=== PATIENT | male | born 1950 | race African-American/Black ===

== ENCOUNTER 2020-11-21 14:08 | Outpatient (REF) | payer MEDICARE, SELFPAY | END 2020-11-21 14:09 | disposition home or self-care (01) | LOC: HO.LNP 14:08 | PROVIDERS: Visit Provider Hospitalist | DX: Z20.822 Contact with and (suspected) exposure to COVID-19 (principal); B34.9 Viral infection, unspecified | CPT/HCPCS: U0003; U0005 ==

== ENCOUNTER 2024-03-30 12:29 | Inpatient (IN) | payer OTHER, SELFPAY ==
[2024-03-30] VITALS (7 sets, daily range): BP systolic 112–150; BP diastolic 66–81; PULSE 68–83; RESP 16–20; TEMP 36.1–36.7; O2SAT 94–98; BMI 23.3
--- NOTE | ~2024-03-30 | CT_ITS ---
EXAMINATION: CT HEAD WITHOUT CONTRAST CLINICAL INFORMATION: Dizziness after falling COMPARISON: None available. TECHNIQUE: Contiguous axial imaging was performed from the skull base to vertex without intravenous administration of contrast. This CT examination was performed using dose optimization techniques as appropriate, variously including the following: *Automated exposure control *Adjustment of mA and/or kV according to patient size (this includes techniques or standardized protocols for targeted exams where dose is matched to indication/reason for exam; i.e. extremities or head) *Use of iterative reconstruction technique DLP: 816 mGy-cm FINDINGS: There is moderate deep white matter gliosis and prominence to the sulci and ventricles but no intra or extra-axial fluid collection or hemorrhage, mass, or mass effect. Calvarium intact. There is minor mucoperiosteal thickening in the right maxillary sinus. CT/CT head/brain wo IV con IMPRESSION: No acute intracranial pathology. Electronically signed by: Rachid Wild MD 03/30/2024 02:18 PM EDT
--- NOTE | ~2024-03-30 | CT_ITS ---
EXAMINATION: CT ABDOMEN AND PELVIS WITH CONTRAST CLINICAL INFORMATION: Diffuse abdominal pain COMPARISON: 01/13/2019 TECHNIQUE: Multidetector volumetric images were obtained from the superior aspect of the liver through the pubic symphysis following administration 85 mL of Omnipaque 350 intravenous contrast. Sagittal and coronal reformatted images were obtained on the technologist's workstation. Oral contrast: No This CT examination was performed using dose optimization techniques as appropriate, variously including the following: *Automated exposure control *Adjustment of mA and/or kV according to patient size (this includes techniques or standardized protocols for targeted exams where dose is matched to indication/reason for exam; i.e. extremities or head) *Use of iterative reconstruction technique DLP: 557 mGy-cm FINDINGS: LUNG BASES: Coronary artery calcifications are partially visualized. ABDOMINAL AND PELVIC WALL: Unremarkable. LIVER AND BILIARY TREE: Unremarkable. GALLBLADDER: Cholelithiasis, no CT findings of acute cholecystitis. PANCREAS: Unremarkable. SPLEEN: Unremarkable. ADRENAL GLANDS: Unremarkable. KIDNEYS AND URETERS: Unremarkable. GASTROINTESTINAL TRACT: Colonic diverticulosis, no findings of diverticulitis. Appendix is within normal limits. VASCULAR: Aortic atherosclerotic calcifications, no aneurysmal dilation. LYMPH NODES/PERITONEUM: No lymphadenopathy. FREE FLUID: None. BLADDER: Unremarkable. PELVIC VISCERA: Unremarkable. OSSEOUS STRUCTURES: Degenerative changes of the thoracolumbar spine. CT/CT abdomen pelvis w IV con IMPRESSION: * No acute intra-abdominal abnormality. * Cholelithiasis, no CT findings of acute cholecystitis. Electronically signed by: Jo Holly MD 03/30/2024 06:39 PM EDT
--- NOTE | 2024-03-30 12:33 | ECG_ITS ---
Test Reason : dizziness, fall Blood Pressure : / mmHG Vent. Rate : 081 BPM Atrial Rate : 081 BPM P-R Int : 138 ms QRS Dur : 098 ms QT Int : 410 ms P-R-T Axes : 064 -35 021 degrees QTc Int : 476 ms Normal sinus rhythm Left axis deviation Nonspecific T wave abnormality Prolonged QT Abnormal ECG No previous ECGs available Referred By: Shi Bates Electronically Signed By:SHERON FLOYD
--- NOTE | 2024-03-30 12:34 | ED.GENADULT ---
HPI - General Adult General Chief complaint: Weakness Stated complaint: Dehydration Time Seen by Provider: 03/30/24 13:47 Source: patient Mode of arrival: ambulatory Limitations: no limitations History of Present Illness ED Provider: Dr. Landy Chaudhry HPI narrative: Patient comes to the emergency room complaining of nausea, vomiting, diarrhea, generalized malaise and weakness. Patient states that about 5 days ago, he ate fried rice with pork and then ate again the next day he read he did the food and ate some more. Patient states that since then, he has been having diffuse abdominal cramping, nausea vomiting diarrhea. Patient states that today he feels weak. Patient states that today when he was walking to emergency room, his legs suddenly gave out. Patient states that he did not hit his head or lost consciousness. Patient states it was just weakness. Related Data Home Medications ?Medication ?Instructions ?Recorded ?Confirmed amlodipine 10 mg tablet 10 mg PO DAILY 11/21/20 03/30/24 clobetasol 0.05 % topical cream 1 appl topical BID PRN Dry Patchy 11/21/20 03/30/24 Skin gabapentin 800 mg tablet 800 mg PO DAILY 11/21/20 03/30/24 lisinopril 40 mg tablet 40 mg PO DAILY 11/21/20 03/30/24 metformin 500 mg tablet 500 mg PO BID 11/21/20 03/30/24 metoprolol tartrate 100 mg tablet 100 mg PO BID 11/21/20 03/30/24 gabapentin 800 mg tablet 800 mg PO DAILY@1200 03/30/24 03/30/24 spironolactone 25 mg tablet 25 mg PO DAILY 03/30/24 03/30/24 Allergies Allergy/AdvReac Type Severity Reaction Status Date / Time No Known Allergies Allergy Verified 03/30/24 12:38 [No Known Allergies*] Review of Systems Review of Systems: Constitutional : No Weight loss, No Fever, No Chills, No Night Sweats, complaining of fatigue, generalized malaise ENT/Mouth : No Hearing loss, No Ear Pain, No Nasal Congestion, No Sinus Pain, No Hoarseness, No sore throat, No Rhinorrhea, No Swallowing Difficulty Eyes: No Eye Pain, No Swelling, No Redness, No Foreign Body, No Discharge, No Vision Changes Cardiovascular : No Chest Pain, No SOB, No Dyspnea on Exertion, No Orthopnea, No Edema, No Palpitations Respiratory : No Cough, No Sputum, No Wheezing, No Smoke Exposure, No Dyspnea Gastrointestinal : Complaining of nausea, vomiting, diarrhea, diffuse abdominal cramping Genitourinary : no irregular bleeding, No Dysuria, No Urinary Frequency, No Hematuria, No Urinary Incontinence, No Urgency, No Flank Pain, No Urinary Flow Changes, No Hesitancy Musculoskeletal : No joint pain, No Myalgias, No Joint Swelling Skin : No Skin Lesions, No rash Neuro : No Weakness, No Numbness, No Paresthesias, No Loss of Consciousness, No Dizziness, No Headache Psych : No Anxiety/Panic, No Depression, No SI/HI/AH/VH, No Social Issues, Heme/Lymph: No Bruising, No Bleeding,No Lymphadenopathy Endocrine : No Polyuria, No Polydipsia, No Temperature Intolerance [facility] Social History Social History Advance Directives: Yes Advance Directives Information Provided: Yes Advance Directives on File: No Do you have a plan to hurt others: No Plan Physical Exam ED Vital Signs: Vital Signs - 24 hr 03/30/24 12:36 03/30/24 14:28 03/30/24 14:29 Temperature 96.9 F Pulse Rate 78 79 68 Respiratory Rate 18 Blood Pressure 112/67 121/71 122/66 Pulse Oximetry 95 Oxygen Delivery Method Room Air 03/30/24 14:29 03/30/24 16:29 03/30/24 18:14 Temperature 98.0 F 97.8 F Pulse Rate 78 78 80 Respiratory Rate 16 20 Blood Pressure 139/81 118/79 150/78 H Pulse Oximetry 98 94 Oxygen Delivery Method Room Air Room Air 03/30/24 20:49 Temperature 97.7 F Pulse Rate 74 Respiratory Rate 17 Blood Pressure 139/72 Pulse Oximetry 94 Oxygen Delivery Method Room Air BMI result Body Mass Index 23.3 Const Other: Appearance: Alert. Oriented X3. No acute distress. Seems weak Eyes: Pupils equal, round and reactive to light. ENT: Pharynx normal. Neck: Normal inspection. Neck supple. No lymph nodes noted. No crepitus CVS: Normal heart rate and rhythm. Pulses normal. Normal S1 and S2 Respiratory: No respiratory distress. Breath sounds normal. No Wheezing. No rales Abdomen: Soft , diffuse discomfort to palpation in all quadrants No rigidity. No distention. Skin: Skin warm and dry. Normal skin color. Normal skin turgor. Extremities: No lower extremity edema. No Lacerations. No Rash Neuro: Oriented X 3. No motor deficit. No sensory deficit. Moving all extremities. No slurred speech. CN 2 through 12 grossly intact Psych: calm, cooperative, normal affect Course Course Course Narrative: This is an RME done by JOCELYN Bates: Additional HPI, ROS, PE not included below will be deferred to primary provider. 73 year old male presenting with concerns of dizziness, weakness, and dehydration since last with a/c fever, chills, n/v, and abdominal pain. He also stated he had food poisoning last day from chicken fried rice. Pt also fell on his way into the ED, landing onto his back, unknown if headstrike, did not experience LOC. Plan - labs, urine, imaging Appearance: Alert.? Oriented X3.? No acute cardiopulmonary distress.? Head: Normocephalic, atraumatic, no step-offs or deformities Neck: Normal inspection.? Neck supple.? CVS: Pulses normal.? Respiratory: No respiratory distress.? Abdomen: Soft and nontender.? Skin: ? Normal skin color. Extremities: 5/5 strength to bilateral upper and lower extremities Neuro: Oriented X 3.? No motor deficit.? No sensory deficit. Medications Administered Discontinued Medications Generic Name Dose Route Start Last Admin Trade Name Freq PRN Reason Stop Dose Admin Sodium Chloride 1,000 mls @ 999 mls/hr 03/30/24 14:01 03/30/24 16:21 Ns IVCONT 03/30/24 15:01 Infused .Q1H1M ONE Infusion Sodium Chloride 1,000 mls @ 999 mls/hr 03/30/24 19:07 03/30/24 20:52 Ns IVCONT 03/30/24 20:07 Infused .Q1H1M ONE Infusion Iohexol 85 ml 03/30/24 16:11 03/30/24 16:12 Iohexol 350 Mg/Ml 75 Ml Infus..Btl IV 03/30/24 16:12 85 ml ONCE ONE Administration Loperamide HCl 4 mg 03/30/24 14:01 03/30/24 14:14 Loperamide Hcl 2 Mg Capsule PO 03/30/24 14:02 Not Given ONCE ONE Ondansetron HCl 4 mg 03/30/24 14:01 03/30/24 14:14 Ondansetron Hcl 4 Mg/2 Ml Vial IVPUSH 03/30/24 14:02 Not Given ONCE ONE Medical Decision Making Medical Decision Making [facility] Narrative: -my interpretation of head CT: No intracranial bleed. My interpretation of CT scan of the abdomen and pelvis, no obvious abnormality -my interpretation of labs: Hematology normal white blood cell count. Bandemia of 15%, chemistry does not show a significant acute electrolyte imbalance. -patient is able to tolerate p.o.. However, when patient walks, he still feels weak -I discussed the patient with Dr. Almonte Differential Diagnosis Differential Diagnoses: The differential diagnosis associated with the presentation includes (Dehydration, gastritis, gastroenteritis, UTI, viral syndrome) Admission/Observation Consideration of admission/observation: Escalation of care including admission/observation considered (Patient is very weak, observation/admission considered) Consult Healthcare Provider Management of the patient was discussed with: Hospitalist Lab Data [facility] Lab Attestation statement: I reviewed the patient's lab results. 03/30/24 12:49 03/30/24 15:41 Labs: Lab Results 03/30/24 03/30/24 03/30/24 Range/Units 12:48 12:49 15:41 WBC 7.7 (4.8-10.8) X10*3/uL RBC 5.12 (4.60-5.80) X10*6/uL Hgb 16.4 (14.0-18.0) g/dl Hct 47.2 (42.0-52.0) % MCV 92.2 (80.0-98.0) fL MCH 32.0 (27.0-33.0) pg MCHC 34.7 (31.0-36.0) g/dl RDW 13.6 (11.0-16.0) % Plt Count 385 (160-400) X10*3/uL MPV 9.2 L (9.4-12.4) fL Immature Gran % (Auto) Cancelled Neut % (Auto) Cancelled Lymph % (Auto) Cancelled [place] % (Auto) Cancelled Eos % (Auto) Cancelled Baso % (Auto) Cancelled Lymph # (Auto) Cancelled [place] # (Auto) Cancelled Eos # (Auto) Cancelled Baso # (Auto) Cancelled Abs Immat Gran (auto) Cancelled Absolute Neuts (auto) Cancelled Absolute Nucleated RBC 0.000 (0.0-0.012) X10*3/uL Nucleated RBC % (auto) 0.0 (0.0-0.2) /100WBC Neutrophils % (Manual) 50 (45-73) % Band Neutrophils % 15 H (3-5) % Lymphocytes % (Manual) 15 L (20-40) % Atypical Lymphs % (Man) 3 (0-6) % Monocytes % (Manual) 16 H (2-11) % Eosinophils % (Manual) 1 (0-4) % Abs Neuts (Manual) 5.0 (2.0-8.3) X10*3/uL Lymphocytes # (Manual) 1.2 (1.2-4.9) X10*3/uL Atyp Lymphs # (Manual) 0.2 x10*3/uL Monocytes # (Manual) 1.2 (0.1-1.2) X10*3/uL Eosinophils # (Manual) 0.1 (0.0-0.4) X10*3/uL Dohle Bodies PRESENT Platelet Estimate NORMAL (NORMAL) Plt Morphology Comment NORMAL RBC Morphology NOTED Polychromasia 1+ (0-2) /OIF Macrocytosis 1+ (5-14) /OIF Ovalocytes 1+ (5-14) /OIF Acanthocytes (Spur) 2+ (3-5) /OIF Sodium 134 L 136 (135-145) mmol/L Potassium 5.1 4.5 (3.3-5.1) mmol/L Chloride 95 L 103 (96-108) mmol/L Carbon Dioxide 24 25 (22-29) mmol/L Anion Gap 20 13 (12-20) BUN 34 H 29 H (9-16) mg/dL Creatinine 1.17 0.92 (0.5-1.4) mg/dL Estim Creat Clear Calc 63.5 80.8 Estimated GFR > 60 > 60 Random Glucose 122 H 104 (60-115) mg/dL Calcium 9.3 7.3 L D (8.4-10.2) mg/dL Magnesium 2.4 (1.6-2.6) mg/dL Total Bilirubin 0.5 (0.0-1.0) mg/dL AST 45 H (5-37) U/L ALT 46 H (0-40) U/L Alkaline Phosphatase 54 (39-117) U/L Troponin I High Sens 63.5 H 56.0 H (<3.5-35.0) ng/L Total Protein 6.6 (6.5-8.0) g/dL Albumin 3.1 L (3.5-5.0) g/dL Urine Color Urine Appearance Urine pH (5.0-9.0) Ur Specific [place] (1.005-1.025) Urine Protein (Neg-Trace) mg/dL Urine Glucose (UA) (Negative) mg/dL Urine Ketones (Negative) mg/dL Urine Blood (Negative) Urine Nitrite (Negative) Ur Leukocyte Esterase (Negative) Urine RBC (0-2) /HPF Urine WBC (0-5) /HPF Ur Squamous Epith Cells (0-2) /HPF Urine Bacteria (None Seen) Hyaline Casts (0-2) /LPF Influenza Type A (PCR) NEGATIVE (Negative) Influenza Type B (PCR) NEGATIVE (Negative) RSV RNA Qual (PCR) NEGATIVE (Negative) SARS-CoV-2 RNA (RT-PCR) NEGATIVE (Negative) 03/30/24 Range/Units 15:49 WBC (4.8-10.8) X10*3/uL RBC (4.60-5.80) X10*6/uL Hgb (14.0-18.0) g/dl Hct (42.0-52.0) % MCV (80.0-98.0) fL MCH (27.0-33.0) pg MCHC (31.0-36.0) g/dl RDW (11.0-16.0) % Plt Count (160-400) X10*3/uL MPV (9.4-12.4) fL Immature Gran % (Auto) Neut % (Auto) Lymph % (Auto) [place] % (Auto) Eos % (Auto) Baso % (Auto) Lymph # (Auto) [place] # (Auto) Eos # (Auto) Baso # (Auto) Abs Immat Gran (auto) Absolute Neuts (auto) Absolute Nucleated RBC (0.0-0.012) X10*3/uL Nucleated RBC % (auto) (0.0-0.2) /100WBC Neutrophils % (Manual) (45-73) % Band Neutrophils % (3-5) % Lymphocytes % (Manual) (20-40) % Atypical Lymphs % (Man) (0-6) % Monocytes % (Manual) (2-11) % Eosinophils % (Manual) (0-4) % Abs Neuts (Manual) (2.0-8.3) X10*3/uL Lymphocytes # (Manual) (1.2-4.9) X10*3/uL Atyp Lymphs # (Manual) x10*3/uL Monocytes # (Manual) (0.1-1.2) X10*3/uL Eosinophils # (Manual) (0.0-0.4) X10*3/uL Dohle Bodies Platelet Estimate (NORMAL) Plt Morphology Comment RBC Morphology Polychromasia /OIF Macrocytosis /OIF Ovalocytes /OIF Acanthocytes (Spur) /OIF Sodium (135-145) mmol/L Potassium (3.3-5.1) mmol/L Chloride (96-108) mmol/L Carbon Dioxide (22-29) mmol/L Anion Gap (12-20) BUN (9-16) mg/dL Creatinine (0.5-1.4) mg/dL Estim Creat Clear Calc Estimated GFR Random Glucose (60-115) mg/dL Calcium (8.4-10.2) mg/dL Magnesium (1.6-2.6) mg/dL Total Bilirubin (0.0-1.0) mg/dL AST (5-37) U/L ALT (0-40) U/L Alkaline Phosphatase (39-117) U/L Troponin I High Sens (<3.5-35.0) ng/L Total Protein (6.5-8.0) g/dL Albumin (3.5-5.0) g/dL Urine Color Dark Yellow Urine Appearance Clear Urine pH 6.0 (5.0-9.0) Ur Specific [place] 1.025 (1.005-1.025) Urine Protein Trace (Neg-Trace) mg/dL Urine Glucose (UA) Negative (Negative) mg/dL Urine Ketones Trace (Negative) mg/dL Urine Blood Negative (Negative) Urine Nitrite Negative (Negative) Ur Leukocyte Esterase Trace H (Negative) Urine RBC 0-2 (0-2) /HPF Urine WBC 0-5 (0-5) /HPF Ur Squamous Epith Cells 0-2 (0-2) /HPF Urine Bacteria None Seen (None Seen) Hyaline Casts 0-2 (0-2) /LPF Influenza Type A (PCR) (Negative) Influenza Type B (PCR) (Negative) RSV RNA Qual (PCR) (Negative) SARS-CoV-2 RNA (RT-PCR) (Negative) Independent Interpretation I performed an independent interpretation of an: CT Scan Radiology Impression Discussion of test interpretation with radiology: I have reviewed the radiologist's reading. Radiologist Impression: FINDINGS: LUNG BASES: Coronary artery calcifications are partially visualized. ABDOMINAL AND PELVIC WALL: Unremarkable. LIVER AND BILIARY TREE: Unremarkable. GALLBLADDER: Cholelithiasis, no CT findings of acute cholecystitis. PANCREAS: Unremarkable. SPLEEN: Unremarkable. ADRENAL GLANDS: Unremarkable. KIDNEYS AND URETERS: Unremarkable. GASTROINTESTINAL TRACT: Colonic diverticulosis, no findings of diverticulitis. Appendix is within normal limits. VASCULAR: Aortic atherosclerotic calcifications, no aneurysmal dilation. LYMPH NODES/PERITONEUM: No lymphadenopathy. FREE FLUID: None. BLADDER: Unremarkable. PELVIC VISCERA: Unremarkable. OSSEOUS STRUCTURES: Degenerative changes of the thoracolumbar spine. CT/CT abdomen pelvis w IV con IMPRESSION: * No acute intra-abdominal abnormality. * Cholelithiasis, no CT findings of acute cholecystitis. There is moderate deep white matter gliosis and prominence to the sulci and ventricles but no intra or extra-axial fluid collection or hemorrhage, mass, or mass effect. Calvarium intact. There is minor mucoperiosteal thickening in the right maxillary sinus. CT/CT head/brain wo IV con IMPRESSION: No acute intracranial pathology. Critical Care Time Critical Care Time Critical Care Time: Yes Total Critical Care Time: 60 Attestation: I have personally provided critical care time. Time includes review of lab data, radiology results, discussion with consultants, and monitoring for potential decompensation. Intervention performed as documented. Discharge Plan Discharge Clinical Impression: Nausea vomiting and diarrhea, Bandemia, Weakness Patient Disposition: Admitted As Inpatient
[2024-03-30 13:00] LABS: Hematocrit 47.2 % (42.0-52.0); Hemoglobin 16.4 g/dl (14.0-18.0); Mean Corpuscular HGB Conc 34.7 g/dl (31.0-36.0); Mean Corpuscular Volume 92.2 fL (80.0-98.0); Mean Platelet Volume 9.2 fL (9.4-12.4); Platelet Count 385 X10*3/uL (160-400); Red Blood Count 5.12 X10*6/uL (4.60-5.80); Red Cell Distribution Width 13.6 % (11.0-16.0); White Blood Count 7.7 X10*3/uL (4.8-10.8)
[2024-03-30 13:19] LABS: Alanine Aminotransferase 46 U/L (0-40); Albumin Level 3.1 g/dL (3.5-5.0); Alkaline Phosphatase 54 U/L (39-117); Anion Gap 20 (12-20); Aspartate Amino Transferase 45 U/L (5-37); Bilirubin Total 0.5 mg/dL (0.0-1.0); Blood Urea Nitrogen 34 mg/dL (9-16); Calcium 9.3 mg/dL (8.4-10.2); Carbon Dioxide 24 mmol/L (22-29); Chloride 95 mmol/L (96-108); Creatinine Clr Calc Pharmacy 63.5; Estimated Glomerular Filt Rate > 60; Glucose Random 122 mg/dL (60-115); Magnesium 2.4 mg/dL (1.6-2.6); Potassium 5.1 mmol/L (3.3-5.1); Sodium 134 mmol/L (135-145); Total Protein 6.6 g/dL (6.5-8.0)
[2024-03-30 13:27] LABS: Troponin-I High Sensitivity 63.5 ng/L (<3.5-35.0)
[2024-03-30 13:37] LABS: Influenza A PCR NEGATIVE (Negative); Influenza B PCR NEGATIVE (Negative); Resp Syncy Virus RNA Qual PCR NEGATIVE (Negative); SARS COV2 PCR INHOUSE NEGATIVE (Negative)
[2024-03-30] MEDS: 0.9 % Sodium Chloride 1,000 ML 999 ML IVCONT ×2 (14:13→19:30)
[2024-03-30 14:38] LABS: Neutrophils Percent Manual 50 % (45-73)
[2024-03-30 14:40] LABS: Acanthocytes 2+ (3-5) /OIF; Atypical Lymph Absolute Manual 0.2 x10*3/uL; Atypical Lymphs Percent Manual 3 % (0-6); Band Neutrophils Percent 15 % (3-5); Dohle Bodies PRESENT; Eosinophils Absolute Manual 0.1 X10*3/uL (0.0-0.4); Eosinophils Percent Manual 1 % (0-4); Lymphocytes Absolute Manual 1.2 X10*3/uL (1.2-4.9); Lymphocytes Percent Manual 15 % (20-40); Macrocytosis 1+ (5-14) /OIF; Monocytes Absolute Manual 1.2 X10*3/uL (0.1-1.2); Monocytes Percent Manual 16 % (2-11); Ovalocytes 1+ (5-14) /OIF; Platelet Estimate NORMAL (NORMAL); Platelet Morphology Comment NORMAL; Polychromasia 1+ (0-2) /OIF; RBC Morphology NOTED
--- NOTE | 2024-03-30 15:26 | MHC.EDTECH ---
this tech took over care @1500, when rounding on the pt this tech observed the pt asleep with equal unlabored respirations present
[2024-03-30 15:58] LABS: Appearance Urine Clear; Color Urine Dark Yellow; Glucose Urine UA Negative (Negative); Leukocyte Esterase Urine Trace (Negative); Nitrite Urine Negative (Negative); Specific Gravity - Urine 1.025 (1.005-1.025); UMIC TRIGGER UACC YES; Urine Blood Negative (Negative); Urine Ketones Trace mg/dL (Negative); Urine Protein Trace mg/dL (Neg-Trace)
[2024-03-30 16:06] LABS: Anion Gap 13 (12-20); Blood Urea Nitrogen 29 mg/dL (9-16); Calcium 7.3 mg/dL (8.4-10.2); Carbon Dioxide 25 mmol/L (22-29); Chloride 103 mmol/L (96-108); Creatinine Clr Calc Pharmacy 80.8; Estimated Glomerular Filt Rate > 60; Glucose Random 104 mg/dL (60-115); Potassium 4.5 mmol/L (3.3-5.1); Sodium 136 mmol/L (135-145)
[2024-03-30 16:08] LABS: Bacteria Urine None Seen (None Seen); Hyaline Casts Urine 0-2 /LPF (0-2); RBC Urine 0-2 /HPF (0-2); Squamous Epithelial Cell Urine 0-2 /HPF (0-2); WBC Urine 0-5 /HPF (0-5)
[2024-03-30] MEDS: iohexoL 350 MG/ML 75 ML INFUS..BTL 85 ML IV (16:12)
--- NOTE | 2024-03-30 17:51 | MHC.EDTECH ---
late entry: this tech assisted the pt to use the urinal between [id number] after he turned on his call light, pt stated he had some stomach discomfort and was given warm pack. Call light given back to pt prior to leaving the room for safteangie.
--- NOTE | 2024-03-30 18:08 | PC.NURSE ---
pt ambulated independently but states he didn't feel steady enough to go home, pt did not need assistance and gait was steady but slow
--- NOTE | 2024-03-30 21:29 | PHA.MEDREC ---
Addendum entered by Martínez Correa, [facility] 03/30/24 21:52: med rec reviewed, unable to confirm fill history on multi medications listed below, hospitalist notified Original Note: Pharmacy Consult ? Medication Reconciliation Pharmacy has completed the medication reconciliation. Confirmed medications with patient. Patient confirmed Amlodipine 5mg daily, Clobetasol 0.05% cream daily as needed, Gabapentin 800mg one in the morning and one in the afternoon, Metformin 500mg twice a day and Metoprolol 100mg twice a day; but looking in claims those medications have not been filled since 2020 and there are no claims for them, the patient states they fill everything at the [facility] on [facility] in [place]. He also confirmed Lisionpril 40mg and Spironolactone 25mg both taken daily and they were recently filled at [facility]. He confirmed he took his medication this morning.
--- NOTE | 2024-03-30 21:34 | PM.IMHP ---
History of Present Illness Date of Service: 03/30/24 Chief Complaint: Nausea/vomiting/diarrhea This is a 73-year-old male with pertinent history of hypertension, lhu-sajmdmg-[id number] diabetes mellitus, peripheral neuropathy who presents to the emergency department for evaluation of nausea, vomiting and diarrhea. Patient states his symptoms began 3-4 days prior to presentation. He ate pork fried rice and symptoms began the day after. He has been having about 10 episodes of nonbloody diarrhea and about 10 episodes of nonbloody emesis with nausea. Unable to tolerate p.o. intake. Also has been having generalized weakness and easy fatigability. No fever, chills, chest discomfort, palpitations, shortness of breath, changes in urinary habits. Has associated generalized abdominal discomfort that is nonradiating, nonprogressive. In the emergency department, 15% bands present Review of Systems Constitutional: Constitutional: Reports fatigue, Reports malaise and Reports weakness Cardiovascular: Cardiovascular: Reports no additional cardiovascular complaints Respiratory: Respiratory: Reports no additional respiratory complaints Gastrointestinal: Gastrointestinal: Reports abdominal pain, Reports diarrhea, Reports loose stools, Reports nausea and Reports vomiting Genitourinary: Genitourinary: Reports no additional male genitourinary complaints Neurologic: Reports weakness Endocrine: Endocrine: Reports fatigue [facility] Medical History Peripheral neuropathy Non-insulin dependent type 2 diabetes mellitus Hypertension Pertinent family history: No family history of early CAD Social History Advance Directives: Yes Advance Directives Information Provided: Yes Advance Directives on File: No Do you have a plan to hurt others: No Plan Meds Allergies Allergy/AdvReac Type Severity Reaction Status Date / Time No Known Allergies Allergy Verified 03/30/24 12:38 [No Known Allergies*] Home Medications ?Medication ?Instructions ?Recorded ?Confirmed ?Last Taken ?Type amlodipine 10 mg tablet 10 mg PO DAILY 11/21/20 03/30/24 03/30/24 06:00 History clobetasol 0.05 % topical cream 1 appl topical BID PRN Dry Patchy 11/21/20 03/30/24 03/30/24 06:00 History Skin gabapentin 800 mg tablet 800 mg PO DAILY 11/21/20 03/30/24 03/30/24 06:00 History lisinopril 40 mg tablet 40 mg PO DAILY 11/21/20 03/30/24 03/30/24 06:00 History metformin 500 mg tablet 500 mg PO BID 11/21/20 03/30/24 03/30/24 06:00 History metoprolol tartrate 100 mg tablet 100 mg PO BID 11/21/20 03/30/24 03/30/24 06:00 History gabapentin 800 mg tablet 800 mg PO DAILY@1200 03/30/24 03/30/24 03/30/24 06:00 History spironolactone 25 mg tablet 25 mg PO DAILY 03/30/24 03/30/24 03/30/24 06:00 History Physical Exam Vital Signs and Narrative: Vital Signs: Last Vital Signs Temp 97.7 F 03/30/24 20:49 Pulse 74 03/30/24 20:49 Resp 17 03/30/24 20:49 BP 139/72 03/30/24 20:49 Pulse Ox 94 03/30/24 20:49 O2 Del Method Room Air 03/30/24 20:49 BMI result Body Mass Index 23.3 Middle-aged male lying in bed in no distress Neck supple, no JVD Regular rate and rhythm, S1-S2 heard Regular breath sounds bilaterally, no wheezing or crackles appreciated Abdomen soft nontender, no guarding, no rigidity Patient is awake, alert and oriented to self, place, time and person ; no focal motor deficit Psych: Normal mood No pedal edema Results Labs 03/30/24 12:49 03/30/24 15:41 Labs: Laboratory Results - last 24 hr 03/30/24 03/30/24 03/30/24 12:48 12:49 15:41 MCV 92.2 MCH 32.0 MCHC 34.7 RDW 13.6 Plt Count 385 MPV 9.2 L Immature Gran % (Auto) Cancelled Neut % (Auto) Cancelled Lymph % (Auto) Cancelled [place] % (Auto) Cancelled Eos % (Auto) Cancelled Baso % (Auto) Cancelled Lymph # (Auto) Cancelled [place] # (Auto) Cancelled Eos # (Auto) Cancelled Baso # (Auto) Cancelled Abs Immat Gran (auto) Cancelled Absolute Neuts (auto) Cancelled Absolute Nucleated RBC 0.000 Nucleated RBC % (auto) 0.0 Neutrophils % (Manual) 50 Band Neutrophils % 15 H Lymphocytes % (Manual) 15 L Atypical Lymphs % (Man) 3 Monocytes % (Manual) 16 H Eosinophils % (Manual) 1 Abs Neuts (Manual) 5.0 Lymphocytes # (Manual) 1.2 Atyp Lymphs # (Manual) 0.2 Monocytes # (Manual) 1.2 Eosinophils # (Manual) 0.1 Dohle Bodies PRESENT Platelet Estimate NORMAL Plt Morphology Comment NORMAL RBC Morphology NOTED Polychromasia 1+ (0-2) Macrocytosis 1+ (5-14) Ovalocytes 1+ (5-14) Acanthocytes (Spur) 2+ (3-5) Anion Gap 20 13 Estim Creat Clear Calc 63.5 80.8 Estimated GFR > 60 > 60 Random Glucose 122 H 104 Calcium 9.3 7.3 L D Magnesium 2.4 Total Bilirubin 0.5 AST 45 H ALT 46 H Alkaline Phosphatase 54 Troponin I High Sens 63.5 H 56.0 H Total Protein 6.6 Albumin 3.1 L Urine Color Urine Appearance Urine pH Ur Specific [place] Urine Protein Urine Glucose (UA) Urine Ketones Urine Blood Urine Nitrite Ur Leukocyte Esterase Urine RBC Urine WBC Ur Squamous Epith Cells Urine Bacteria Hyaline Casts Influenza Type A (PCR) NEGATIVE Influenza Type B (PCR) NEGATIVE RSV RNA Qual (PCR) NEGATIVE SARS-CoV-2 RNA (RT-PCR) NEGATIVE 03/30/24 15:49 MCV MCH MCHC RDW Plt Count MPV Immature Gran % (Auto) Neut % (Auto) Lymph % (Auto) [place] % (Auto) Eos % (Auto) Baso % (Auto) Lymph # (Auto) [place] # (Auto) Eos # (Auto) Baso # (Auto) Abs Immat Gran (auto) Absolute Neuts (auto) Absolute Nucleated RBC Nucleated RBC % (auto) Neutrophils % (Manual) Band Neutrophils % Lymphocytes % (Manual) Atypical Lymphs % (Man) Monocytes % (Manual) Eosinophils % (Manual) Abs Neuts (Manual) Lymphocytes # (Manual) Atyp Lymphs # (Manual) Monocytes # (Manual) Eosinophils # (Manual) Dohle Bodies Platelet Estimate Plt Morphology Comment RBC Morphology Polychromasia Macrocytosis Ovalocytes Acanthocytes (Spur) Anion Gap Estim Creat Clear Calc Estimated GFR Random Glucose Calcium Magnesium Total Bilirubin AST ALT Alkaline Phosphatase Troponin I High Sens Total Protein Albumin Urine Color Dark Yellow Urine Appearance Clear Urine pH 6.0 Ur Specific [place] 1.025 Urine Protein Trace Urine Glucose (UA) Negative Urine Ketones Trace Urine Blood Negative Urine Nitrite Negative Ur Leukocyte Esterase Trace H Urine RBC 0-2 Urine WBC 0-5 Ur Squamous Epith Cells 0-2 Urine Bacteria None Seen Hyaline Casts 0-2 Influenza Type A (PCR) Influenza Type B (PCR) RSV RNA Qual (PCR) SARS-CoV-2 RNA (RT-PCR) Imaging Radiologist's Impressions: Impressions Head CT 03/30/24 12:51 IMPRESSION: No acute intracranial pathology. Electronically signed by: Rachid Wild MD 03/30/2024 02:18 PM EDT RP Abdomen/Pelvis CT 03/30/24 16:00 IMPRESSION: * No acute intra-abdominal abnormality. * Cholelithiasis, no CT findings of acute cholecystitis. Electronically signed by: Jo Holly MD 03/30/2024 06:39 PM EDT RP Assessment and Plan (1) Bandemia: Status: Acute (2) Nausea vomiting and diarrhea: Status: Acute Plan This is a 73-year-old male with pertinent history of hypertension, zma-jayihtc-vnjtsblej diabetes mellitus, peripheral neuropathy who presents to the emergency department for evaluation of nausea, vomiting and diarrhea. Patient states his symptoms began 3-4 days prior to presentation. #. Intractable vomiting and diarrhea: Will admit patient has unable to tolerate p.o. intake. Ordered GI panel and C diff. clear liquid diet and advance as tolerated. Noted bandemia, initiating empiric IV antibiotics. Resuscitated with IV crystalloids in the ER. No sepsis #. Dtt-pcjnulr-bdmdowvlz diabetes mellitus: Hold metformin. Initiating Accu-Cheks with sliding scale insulin before meals and at bedtime #. Peripheral neuropathy: On Gabapentin #. Hypertension: Continue home antihypertensives Med rec pending DVT prophylaxis: Lovenox Full code Admit as inpatient and will require two night minimum hospital stay for IV antibiotics, monitoring of bowel function (as above), which is not possible in a lesser acute setting. Quality Stroke Does the patient have a stroke diagnosis?: No VTE Prior VTE?: No VTE Risk Level:: Medical - moderate - high VTE Device Contraindication: Treatment Not Indicated VTE Drug Contraindication: N/A - Med Ordered
[2024-03-30] MEDS: cefTRIAXone sodium 1 GM in 0.9 % Sodium Chloride 50 ML IV (22:31)
[2024-03-30] MEDS: ondansetron HCL 4 MG/2 ML VIAL IVPUSH (22:32)
[2024-03-30] MEDS: Enoxaparin Sodium 40 MG/0.4 ML SYRINGE SUBCUT (22:36)
--- NOTE | 2024-03-30 22:38 | PC.NURSE ---
Pt reports sudden nausea and hiccups, Pt medicated per OCT.
[2024-03-30 22:39] LABS: Lactic Acid 1.6 mmol/L (0.5-2.0)
[2024-03-30] MEDS: metroNIDAZOLE/NS 500 MG/100 ML PIGGYBACK 100 MG IV (22:49)
--- NOTE | 2024-03-30 23:24 | MHC.EDTECH ---
This tech took over care of patient at 2300,rounds and vitals completed,upon entry to room patient was vomiting,patient vomiting 100MLS of brown vomit,mostly liquid,RN was made aware,call warren in reach
[2024-03-30] MEDS: Calcium Carbonate 750 MG TAB.CHEW PO (23:44)
--- NOTE | 2024-03-30 23:50 | PC.NURSE ---
pt having brown emesis, and hiccups, informed dr lorenz
[2024-03-31] VITALS (10 sets, daily range): BP systolic 123–168; BP diastolic 71–87; PULSE 77–88; RESP 15–22; TEMP 36.4–36.6; O2SAT 94–98
[2024-03-31] MEDS: Metoclopramide HCl 10 MG/2 ML VIAL IVPUSH (00:11)
[2024-03-31] MEDS: 0.9 % Sodium Chloride Flush 3 ML SYRINGE IVFLUSH ×2 (00:14→08:08)
--- NOTE | 2024-03-31 01:28 | PC.NURSE ---
pt sitting up on the side of the bed, states he is better, no hiccuping at this time
--- NOTE | 2024-03-31 03:36 | MHC.EDTECH ---
Hourly rounds and vitals completed,emptied 300MLS of dark yellow urine from urinal,patient is resting quietly at this time call warren in reach
--- NOTE | 2024-03-31 04:44 | PC.NURSE ---
pt resting quietly on stretcher at this time, resp with ease, no s/s of acute distress
--- NOTE | 2024-03-31 06:02 | MHC.EDTECH ---
Hourly rounds and vitals completed,patient given a diet christiane teagan per request,emptied 250MLS of dark yellow urine from urinal.
[2024-03-31] MEDS: metroNIDAZOLE/NS 500 MG/100 ML PIGGYBACK 100 MG IV (06:08)
[2024-03-31 06:21] LABS: Hematocrit 45.5 % (42.0-52.0); Hemoglobin 15.6 g/dl (14.0-18.0); Mean Corpuscular HGB Conc 34.3 g/dl (31.0-36.0); Mean Corpuscular Hemoglobin 31.3 pg (27.0-33.0); Mean Corpuscular Volume 91.4 fL (80.0-98.0); Mean Platelet Volume 9.3 fL (9.4-12.4); Platelet Count 433 X10*3/uL (160-400); Red Blood Count 4.98 X10*6/uL (4.60-5.80); Red Cell Distribution Width 13.7 % (11.0-16.0); WBC ABN SCTR FOR CBC 1; White Blood Count 9.7 X10*3/uL (4.8-10.8)
[2024-03-31 06:37] LABS: Alanine Aminotransferase 40 U/L (0-40); Albumin Level 2.7 g/dL (3.5-5.0); Alkaline Phosphatase 55 U/L (39-117); Anion Gap 13 (12-20); Aspartate Amino Transferase 32 U/L (5-37); Bilirubin Total 0.3 mg/dL (0.0-1.0); Blood Urea Nitrogen 20 mg/dL (9-16); Calcium 8.4 mg/dL (8.4-10.2); Carbon Dioxide 21 mmol/L (22-29); Chloride 102 mmol/L (96-108); Creatinine Clr Calc Pharmacy 90.6; Estimated Glomerular Filt Rate > 60; Glucose Random 117 mg/dL (60-115); Potassium 4.4 mmol/L (3.3-5.1); Sodium 132 mmol/L (135-145); Total Protein 5.7 g/dL (6.5-8.0)
--- NOTE | 2024-03-31 06:39 | PC.NURSE ---
pt sitting up on stretcher, resp with ease, states he feels better at this time, no nausea, pt still having hiccups,
--- NOTE | 2024-03-31 06:58 | PC.NURSE ---
report given to Stephanie AJ
[2024-03-31 07:25] LABS: Glucose, Whole Blood 108 mg/dL (60-115)
[2024-03-31 08:13] LABS: Atypical Lymph Absolute Manual 0.3 x10*3/uL; Atypical Lymphs Percent Manual 3 % (0-6); Band Neutrophils Percent 6 % (3-5); Eosinophils Absolute Manual 0.1 X10*3/uL (0.0-0.4); Eosinophils Percent Manual 1 % (0-4); Lymphocytes Absolute Manual 0.7 X10*3/uL (1.2-4.9); Lymphocytes Percent Manual 7 % (20-40); Metamyelocytes Absolute 0.2 X10*3/uL; Metamyelocytes Percent 2 %; Monocytes Absolute Manual 1.1 X10*3/uL (0.1-1.2); Monocytes Percent Manual 11 % (2-11); Neutrophils Absolute Manual 7.4 X10*3/uL (2.0-8.3); Neutrophils Percent Manual 70 % (45-73)
[2024-03-31 08:14] LABS: Burr Cells 3+ (>5) /OIF; Platelet Estimate NORMAL (NORMAL); RBC Morphology NOTED
[2024-03-31 08:15] LABS: Dohle Bodies PRESENT; Large Platelet PRESENT; Platelet Morphology Comment NOTED
[2024-03-31] MEDS: Gabapentin 400 MG CAPSULE 800 MG PO (08:56)
[2024-03-31] MEDS: Spironolactone 25 MG TABLET PO (08:57)
[2024-03-31] MEDS: amLODIPine Besylate 10 MG TABLET PO (08:57)
[2024-03-31] MEDS: Metoprolol Tartrate 100 MG TABLET PO ×2 (08:57→20:53)
[2024-03-31] MEDS: lisinopriL 40 MG TABLET PO (08:58)
[2024-03-31] MEDS: Nicotine 21 MG PATCH.TD24 TRANSDERMA (09:30)
--- NOTE | 2024-03-31 09:57 | HO.PM.IMPN ---
Subjective Subjective Date of Service: 03/31/24 Interval History: somewhat better, no further vomiting or diarrhea Physical Exam Vital Signs: Vital Signs: Last Vital Signs Temp 97.8 F 03/31/24 08:07 Pulse 84 03/31/24 08:57 Resp 18 03/31/24 08:07 BP 162/76 H 03/31/24 08:58 Pulse Ox 94 03/31/24 08:07 O2 Del Method Room Air 03/31/24 08:07 BMI result Body Mass Index 23.3 General: AO X 3, no acute distress Resp: CTA bilateral, no accessory muscles used CVS: S1,S2,RRR GI: soft, non tender, non distended Neuro: motor grossly intact, alert Psych: appropriate affect, appropriate insight Objective Data Active Medications Acetaminophen (Acetaminophen 325 Mg Tablet) 650 mg PO Q6H PRN PRN Reason: Pain, Mild (Pain Scale 1-3), fever or headache Amlodipine Besylate (Amlodipine Besylate 10 Mg Tablet) 10 mg PO DAILY [facility]; Protocol Last Admin: 03/31/24 08:57 Dose: 10 mg Documented By: NINA Calcium Carbonate (Calcium Carbonate 750 Mg Tab.Chew) 750 mg PO Q4H PRN PRN Reason: Heartburn Last Admin: 03/30/24 23:44 Dose: 750 mg Documented By: BERENICE Enoxaparin Sodium (Enoxaparin Sodium 40 Mg/0.4 Ml Syringe) 40 mg SUBCUT Q24H [facility] Last Admin: 03/30/24 22:36 Dose: 40 mg Documented By: ARMAAN Gabapentin (Gabapentin 400 Mg Capsule) 800 mg PO DAILY@1200 BETINA Gabapentin (Gabapentin 400 Mg Capsule) 800 mg PO DAILY [facility] Last Admin: 03/31/24 08:56 Dose: 800 mg Documented By: NINA Glucose (Glucose Gel 15 Gm Gel..Gram.) 15 gm PO Q15M PRN; Protocol PRN Reason: per Hypoglycemia Standing Ord. Ceftriaxone Sodium 1 gm/ (Sodium Chloride) 50 mls @ 100 mls/hr IV Q24H [facility] Last Infusion: 03/30/24 23:03 Dose: Infused Documented By: ARMAAN Metronidazole (Flagyl) 500 mg in 100 mls @ 100 mls/hr IV Q8H [facility] Last Infusion: 03/31/24 08:10 Dose: Infused Documented By: NINA Dextrose (D10) 250 mls @ 750 mls/hr IV Q15M PRN; Protocol PRN Reason: per Hypoglycemia Standing Ord. Insulin Human Lispro (Insulin Lispro 100 Unit/Ml 3 Ml Vial) 0 unit SUBCUT QIDACHS [facility]; Protocol Last Admin: 03/31/24 08:09 Dose: Not Given Documented By: NINA Non-Admin Reason: No Insulin Coverage Comments: order parameters not met Lisinopril (Lisinopril 40 Mg Tablet) 40 mg PO DAILY [facility]; Protocol Last Admin: 03/31/24 08:58 Dose: 40 mg Documented By: NINA Magnesium Hydroxide (Milk Of Magnesia 30 Ml Oral.Susp) 30 ml PO DAILY PRN PRN Reason: Constipation Melatonin (Melatonin 3 Mg Tablet) 6 mg PO BEDTIME PRN PRN Reason: Insomnia Metoprolol Tartrate (Metoprolol Tartrate 100 Mg Tablet) 100 mg PO BID [facility]; Protocol Last Admin: 03/31/24 08:57 Dose: 100 mg Documented By: NINA Nicotine (Nicotine 21 Mg Patch.Td24) 21 mg TRANSDERMA DAILY [facility] Last Admin: 03/31/24 09:30 Dose: 21 mg Documented By: NINA Ondansetron HCl (Ondansetron Hcl 4 Mg/2 Ml Vial) 4 mg IVPUSH Q8H PRN PRN Reason: Nausea and Vomiting Last Admin: 03/30/24 22:32 Dose: 4 mg Documented By: ARMAAN Sodium Chloride (0.9 % Sodium Chloride Flush 3 Ml Syringe) [facility] Last Admin: 03/31/24 08:08 Dose: 3 ml Documented By: NINA Spironolactone (Spironolactone 25 Mg Tablet) 25 mg PO DAILY [facility]; Protocol Last Admin: 03/31/24 08:57 Dose: 25 mg Documented By: NINA Labs 03/31/24 05:48 03/31/24 05:48 Labs: Laboratory Results - last 24 hr 03/30/24 03/30/24 03/30/24 12:48 12:49 15:41 MCV 92.2 MCH 32.0 MCHC 34.7 RDW 13.6 Plt Count 385 MPV 9.2 L Immature Gran % (Auto) Cancelled Neut % (Auto) Cancelled Lymph % (Auto) Cancelled [place] % (Auto) Cancelled Eos % (Auto) Cancelled Baso % (Auto) Cancelled Lymph # (Auto) Cancelled [place] # (Auto) Cancelled Eos # (Auto) Cancelled Baso # (Auto) Cancelled Abs Immat Gran (auto) Cancelled Absolute Neuts (auto) Cancelled Absolute Nucleated RBC 0.000 Nucleated RBC % (auto) 0.0 Neutrophils % (Manual) 50 Band Neutrophils % 15 H Lymphocytes % (Manual) 15 L Atypical Lymphs % (Man) 3 Monocytes % (Manual) 16 H Eosinophils % (Manual) 1 Metamyelocytes % Abs Neuts (Manual) 5.0 Lymphocytes # (Manual) 1.2 Atyp Lymphs # (Manual) 0.2 Monocytes # (Manual) 1.2 Eosinophils # (Manual) 0.1 Metamyelocytes # Dohle Bodies PRESENT Platelet Estimate NORMAL Large Platelets Plt Morphology Comment NORMAL RBC Morphology NOTED Polychromasia 1+ (0-2) Macrocytosis 1+ (5-14) Ovalocytes 1+ (5-14) Sanjeev Cells Acanthocytes (Spur) 2+ (3-5) Anion Gap 20 13 Estim Creat Clear Calc 63.5 80.8 Estimated GFR > 60 > 60 POC Glucose Random Glucose 122 H 104 Lactic Acid Calcium 9.3 7.3 L D Magnesium 2.4 Total Bilirubin 0.5 AST 45 H ALT 46 H Alkaline Phosphatase 54 Troponin I High Sens 63.5 H 56.0 H Total Protein 6.6 Albumin 3.1 L Urine Color Urine Appearance Urine pH Ur Specific [place] Urine Protein Urine Glucose (UA) Urine Ketones Urine Blood Urine Nitrite Ur Leukocyte Esterase Urine RBC Urine WBC Ur Squamous Epith Cells Urine Bacteria Hyaline Casts Influenza Type A (PCR) NEGATIVE Influenza Type B (PCR) NEGATIVE RSV RNA Qual (PCR) NEGATIVE SARS-CoV-2 RNA (RT-PCR) NEGATIVE 03/30/24 03/30/24 03/31/24 15:49 22:17 05:48 MCV 91.4 MCH 31.3 MCHC 34.3 RDW 13.7 Plt Count 433 H MPV 9.3 L Immature Gran % (Auto) Cancelled Neut % (Auto) Cancelled Lymph % (Auto) Cancelled [place] % (Auto) Cancelled Eos % (Auto) Cancelled Baso % (Auto) Cancelled Lymph # (Auto) Cancelled [place] # (Auto) Cancelled Eos # (Auto) Cancelled Baso # (Auto) Cancelled Abs Immat Gran (auto) Cancelled Absolute Neuts (auto) Cancelled Absolute Nucleated RBC 0.000 Nucleated RBC % (auto) 0.0 Neutrophils % (Manual) 70 Band Neutrophils % 6 H Lymphocytes % (Manual) 7 L Atypical Lymphs % (Man) 3 Monocytes % (Manual) 11 Eosinophils % (Manual) 1 Metamyelocytes % 2 Abs Neuts (Manual) 7.4 Lymphocytes # (Manual) 0.7 L Atyp Lymphs # (Manual) 0.3 Monocytes # (Manual) 1.1 Eosinophils # (Manual) 0.1 Metamyelocytes # 0.2 Dohle Bodies PRESENT Platelet Estimate NORMAL Large Platelets PRESENT Plt Morphology Comment NOTED RBC Morphology NOTED Polychromasia Macrocytosis Ovalocytes [place] Cells 3+ (>5) Acanthocytes (Spur) Anion Gap 13 Estim Creat Clear Calc 90.6 Estimated GFR > 60 POC Glucose Random Glucose 117 H Lactic Acid 1.6 Calcium 8.4 D Magnesium Total Bilirubin 0.3 AST 32 ALT 40 Alkaline Phosphatase 55 Troponin I High Sens Total Protein 5.7 L Albumin 2.7 L Urine Color Dark Yellow Urine Appearance Clear Urine pH 6.0 Ur Specific [place] 1.025 Urine Protein Trace Urine Glucose (UA) Negative Urine Ketones Trace Urine Blood Negative Urine Nitrite Negative Ur Leukocyte Esterase Trace H Urine RBC 0-2 Urine WBC 0-5 Ur Squamous Epith Cells 0-2 Urine Bacteria None Seen Hyaline Casts 0-2 Influenza Type A (PCR) Influenza Type B (PCR) RSV RNA Qual (PCR) SARS-CoV-2 RNA (RT-PCR) 03/31/24 07:16 MCV MCH MCHC RDW Plt Count MPV Immature Gran % (Auto) Neut % (Auto) Lymph % (Auto) [place] % (Auto) Eos % (Auto) Baso % (Auto) Lymph # (Auto) [place] # (Auto) Eos # (Auto) Baso # (Auto) Abs Immat Gran (auto) Absolute Neuts (auto) Absolute Nucleated RBC Nucleated RBC % (auto) Neutrophils % (Manual) Band Neutrophils % Lymphocytes % (Manual) Atypical Lymphs % (Man) Monocytes % (Manual) Eosinophils % (Manual) Metamyelocytes % Abs Neuts (Manual) Lymphocytes # (Manual) Atyp Lymphs # (Manual) Monocytes # (Manual) Eosinophils # (Manual) Metamyelocytes # Dohle Bodies Platelet Estimate Large Platelets Plt Morphology Comment RBC Morphology Polychromasia Macrocytosis Ovalocytes Sanjeev Cells Acanthocytes (Spur) Anion Gap Estim Creat Clear Calc Estimated GFR POC Glucose 108 Random Glucose Lactic Acid Calcium Magnesium Total Bilirubin AST ALT Alkaline Phosphatase Troponin I High Sens Total Protein Albumin Urine Color Urine Appearance Urine pH Ur Specific [place] Urine Protein Urine Glucose (UA) Urine Ketones Urine Blood Urine Nitrite Ur Leukocyte Esterase Urine RBC Urine WBC Ur Squamous Epith Cells Urine Bacteria Hyaline Casts Influenza Type A (PCR) Influenza Type B (PCR) RSV RNA Qual (PCR) SARS-CoV-2 RNA (RT-PCR) Assessment and Plan (1) Non-insulin dependent type 2 diabetes mellitus: Status: Acute Plan 73M PMH htn, dm, peripheral neuropathy presented with n/v and diarrhea Intractable nausea vomiting and diarrhea Diarrhea since resolved, now tolerating p.o. but still pretty weak with minimal appetite Likely gastroenteritis, follow-up GI panel and C diff at passive further diarrhea. Continue antiemetics and IV fluids, will DC antibiotics Diabetes Continue insulin sliding scale Peripheral neuropathy Continue gabapentin Hypertension Continue lisinopril, amlodipine, spironolactone, Lopressor DVT prophylaxis with Lovenox Full Code reason for continued hospitalization: Still feeling weak and minimal appetite, needing iv hydration Quality Stroke Does the patient have a stroke diagnosis?: No VTE Prior VTE?: No VTE Risk Level:: Medical - moderate - high VTE Device Contraindication: Treatment Not Indicated VTE Drug Contraindication: N/A - Med Ordered
--- NOTE | 2024-03-31 10:47 | MHC.CM.PN ---
CM met with Patient at bedside, in the ED, and addressed IMM with him, providing Patient with the original and a copy has been placed on the chart. Patient lives alone in a condo and he uses a cane at times to assist with mobility. Home.self care is the goal and CM has initiated and will follow for dc planning. PCP is Dr. Guzman Pedersen and Patient;'s car is here for transport to home.
[2024-03-31 13:22] LABS: Glucose, Whole Blood 122 mg/dL (60-115)
[2024-03-31] MEDS: ondansetron HCL 4 MG/2 ML VIAL IVPUSH (15:05)
--- NOTE | 2024-03-31 15:21 | PC.NURSE ---
patient complaining of nausea after attempting to eat lunch, medicated with PRN zofran per OCT. patient not offering any other complaints at this time, still awaititng bed assignment
--- NOTE | 2024-03-31 18:47 | PM.DS ---
DS: Providers Provider Date of Service: 03/31/24 Date of admission: 03/30/24 21:33 Date of discharge: 03/31/24 Primary care physician: Unknown Physician DS: Diagnosis Discharge Diagnosis (1) Non-insulin dependent type 2 diabetes mellitus: Status: Acute DS: Summary Hospital Course Hospital Course: from initial hpi: 73-year-old male with pertinent history of hypertension, [id number] diabetes mellitus, peripheral neuropathy who presents to the emergency department for evaluation of nausea, vomiting and diarrhea. Patient states his symptoms began 3-4 days prior to presentation. He ate pork fried rice and symptoms began the day after. He has been having about 10 episodes of nonbloody diarrhea and about 10 episodes of nonbloody emesis with nausea. Unable to tolerate p.o. intake. Also has been having generalized weakness and easy fatigability. No fever, chills, chest discomfort, palpitations, shortness of breath, changes in urinary habits. Has associated generalized abdominal discomfort that is nonradiating, nonprogressive. In the emergency department, 15% bands present hospital course: Patient was admitted for intractable nausea and vomiting and diarrhea. This was likely due to gastroenteritis. He was given IV fluids and antiemetics. Initially put on IV antibiotics but this will be held as patient's symptoms completely resolved he was able to tolerate diet and ambulated well and feeling back to normal. He will be discharged home and continue symptomatic management. For diabetes was continue insulin sliding scale. For peripheral neuropathy was continue gabapentin. For hypertension was continued on lisinopril, amlodipine, spironolactone, Lopressor Time Attestation Discharge Coordination Time (in mins): 33 Quality: Safe Use of Opioids Does Pt have an Active Cancer Diagnosis on the Problem List?: No Quality: Stroke Does the patient have a stroke diagnosis?: No Physical Exam Vital Signs: Vital Signs: Last Vital Signs Temp 97.9 F 03/31/24 18:36 Pulse 86 03/31/24 18:36 Resp 20 03/31/24 18:36 BP 142/76 H 03/31/24 18:36 Pulse Ox 98 03/31/24 14:55 O2 Del Method Room Air 03/31/24 14:55 BMI result Body Mass Index 23.3 General: AO X 3, no acute distress Resp: CTA bilateral, no accessory muscles used CVS: S1,S2,RRR GI: soft, non tender, non distended Neuro: motor grossly intact, alert Psych: appropriate affect, appropriate insight DS: Data Data Completed and Pending Labs on day of discharge: Laboratory Results - last 24 hr 03/30/24 03/31/24 03/31/24 22:17 05:48 07:16 WBC 9.7 RBC 4.98 Hgb 15.6 Hct 45.5 MCV 91.4 MCH 31.3 MCHC 34.3 RDW 13.7 Plt Count 433 H MPV 9.3 L Immature Gran % (Auto) Cancelled Neut % (Auto) Cancelled Lymph % (Auto) Cancelled [place] % (Auto) Cancelled Eos % (Auto) Cancelled Baso % (Auto) Cancelled Lymph # (Auto) Cancelled [place] # (Auto) Cancelled Eos # (Auto) Cancelled Baso # (Auto) Cancelled Abs Immat Gran (auto) Cancelled Absolute Neuts (auto) Cancelled Absolute Nucleated RBC 0.000 Nucleated RBC % (auto) 0.0 Neutrophils % (Manual) 70 Band Neutrophils % 6 H Lymphocytes % (Manual) 7 L Atypical Lymphs % (Man) 3 Monocytes % (Manual) 11 Eosinophils % (Manual) 1 Metamyelocytes % 2 Abs Neuts (Manual) 7.4 Lymphocytes # (Manual) 0.7 L Atyp Lymphs # (Manual) 0.3 Monocytes # (Manual) 1.1 Eosinophils # (Manual) 0.1 Metamyelocytes # 0.2 Dohle Bodies PRESENT Platelet Estimate NORMAL Large Platelets PRESENT Plt Morphology Comment NOTED RBC Morphology NOTED [place] Cells 3+ (>5) Sodium 132 L Potassium 4.4 Chloride 102 Carbon Dioxide 21 L Anion Gap 13 BUN 20 H Creatinine 0.82 Estim Creat Clear Calc 90.6 Estimated GFR > 60 POC Glucose 108 Random Glucose 117 H Lactic Acid 1.6 Calcium 8.4 D Total Bilirubin 0.3 AST 32 ALT 40 Alkaline Phosphatase 55 Total Protein 5.7 L Albumin 2.7 L 03/31/24 13:18 WBC RBC Hgb Hct MCV MCH MCHC RDW Plt Count MPV Immature Gran % (Auto) Neut % (Auto) Lymph % (Auto) [place] % (Auto) Eos % (Auto) Baso % (Auto) Lymph # (Auto) [place] # (Auto) Eos # (Auto) Baso # (Auto) Abs Immat Gran (auto) Absolute Neuts (auto) Absolute Nucleated RBC Nucleated RBC % (auto) Neutrophils % (Manual) Band Neutrophils % Lymphocytes % (Manual) Atypical Lymphs % (Man) Monocytes % (Manual) Eosinophils % (Manual) Metamyelocytes % Abs Neuts (Manual) Lymphocytes # (Manual) Atyp Lymphs # (Manual) Monocytes # (Manual) Eosinophils # (Manual) Metamyelocytes # Dohle Bodies Platelet Estimate Large Platelets Plt Morphology Comment RBC Morphology Sanjeev Cells Sodium Potassium Chloride Carbon Dioxide Anion Gap BUN Creatinine Estim Creat Clear Calc Estimated GFR POC Glucose 122 H Random Glucose Lactic Acid Calcium Total Bilirubin AST ALT Alkaline Phosphatase Total Protein Albumin Discharge Plan Discharge Anticipated Discharge Date/Time: 03/31/24 18:45 Patient Disposition: Home, Self-Care Discharge Diagnosis: gastroenteritis Referrals: Physician,Unknown J [Primary Care Provider] - 1 Week Discharge Medications: Continued spironolactone 25 mg tablet 25 mg PO DAILY gabapentin 800 mg Tablet 800 mg PO DAILY@1200 amlodipine 10 mg tablet 10 mg PO DAILY clobetasol 0.05 % cream 1 appl topical BID PRN (Reason: Dry Patchy Skin) gabapentin 800 mg tablet 800 mg PO DAILY lisinopril 40 mg tablet 40 mg PO DAILY metformin 500 mg tablet 500 mg PO BID metoprolol tartrate 100 mg tablet 100 mg PO BID Discharge Orders: Discharge Order (Routine); Ordered 03/31/24 Ordered By: Ilan Willis Diet: Advance to usual diet Activity on Discharge: As tolerated Stand Alone Forms: Patient Portal Discharge page Print Language: Marshallese Care Plan Goals: recovery Health Concerns: gastroenteritis Plan of Treatment: advance diet as toelrated Assessment: see above
[2024-03-31] MEDS: Milk of Magnesia 30 ML ORAL.SUSP PO (20:49)
[2024-03-31] MEDS: Enoxaparin Sodium 40 MG/0.4 ML SYRINGE SUBCUT (20:51)
--- NOTE | 2024-03-31 20:59 | PC.NURSE ---
Pt requested and given med for constipation Pt medicated per oct. Pt requested and given drink No insulin coverage req. Pt sitting in bed watching tv Pt denies pain at this time. Plan of care ongoing.
[2024-03-31 21:03] LABS: Glucose, Whole Blood 138 mg/dL (60-115)
--- NOTE | 2024-04-01 04:04 | PC.NURSE ---
Pt ambulates to the restroom for a steady gait. Plan of care ongoing.
[2024-04-01 07:21] LABS: Glucose, Whole Blood 92 mg/dL (60-115)
[2024-04-01 08:22] VITALS: BP 139/74; PULSE 69; RESP 14; TEMP 36.6; O2SAT 96
--- NOTE | 2024-04-01 08:54 | MHC.CM.PN ---
Patient discharged home self care via private transport.
== END 2024-04-01 08:21 | disposition home or self-care (01) | DRG 392 ==
LOC: HO.ED 20:51 → HO.EDOVER 21:47 → HO.S3 04-01 07:40 → HO.EDOVER 04-01 08:08
PROVIDERS: Physician Assistant; Admitting Provider Student in an Organized Health Care Education/Training Program; Emergency Provider Emergency Medicine; PCP Internal Medicine; Visit Provider Internal Medicine
DX: K52.9 Noninfective gastroenteritis and colitis, unspecified (principal); E11.42 Type 2 diabetes mellitus with diabetic polyneuropathy; I10 Essential (primary) hypertension; Z20.822 Contact with and (suspected) exposure to COVID-19; Z79.84 Long term (current) use of oral hypoglycemic drugs; Z79.899 Other long term (current) drug therapy
CPT/HCPCS: 0241U; 36415; 70450; 74177; 80048; 80053; 81001; 82947; 83605; 83735; 84484; 85007; 85025; 85027; 87040; 93005; 99285; J0696; J1650; J1836; J2405; J2765; Q9967

== ENCOUNTER → 2024-03-30 21:33 | Outpatient (BNV) | payer OTHER, SELFPAY | PROVIDERS: Admitting Provider Student in an Organized Health Care Education/Training Program; Emergency Provider Emergency Medicine; Visit Provider Student in an Organized Health Care Education/Training Program | DX: K52.9 Noninfective gastroenteritis and colitis, unspecified (principal); E11.9 Type 2 diabetes mellitus without complications | CPT/HCPCS: 99222; 99239; 99499 ==